=== PATIENT | female | born 1980 | race Caucasian/White ===

== ENCOUNTER → 2017-07-01 09:56 | Outpatient (CLI) | payer MEDICAID ==
[2016-10-15 07:47] VITALS: BMI 35.9
[~2017-07-01 09:56] MED LIST: ASPIRIN EC81 M1 PO; CALTRATE 600 M600 M1 PO; GLUCOPHAGE500 MG PO; HYDROCODON-ACE1 EAC7 PO; LISINOPRIL-HCTZ1 TA2 PO; MULTIPLE VITAMI1 TA1 PO; NORMODYNE / TR100 MG PO; PRAVASTATIN SOD10 MG PO; ZOFRAN8 MG PO
== END | disposition home or self-care (01) ==
LOC: D.US 09:56
DX: R22.1 Localized swelling, mass and lump, neck (principal)

== ENCOUNTER → 2017-12-18 08:32 | Outpatient (CLI) | payer MEDICAID ==
[2016-10-15 07:47] VITALS: BMI 35.9
== END | disposition home or self-care (01) ==
LOC: D.US 08:32
DX: E04.1 Nontoxic single thyroid nodule (principal)

== ENCOUNTER → 2018-07-15 08:32 | Outpatient (CLI) | payer MEDICAID ==
[2016-10-15 07:47] VITALS: BMI 35.9
== END | disposition home or self-care (01) ==
LOC: D.US 08:32
DX: E04.1 Nontoxic single thyroid nodule (principal)

== ENCOUNTER → 2019-07-11 12:24 | Outpatient (CLI) | payer MEDICAID ==
[2016-10-15 07:47] VITALS: BMI 35.9
[~2019-07-11 12:24] MED LIST changes: +SYNTHROID50 MCG PO; +ZOFRAN4 MG PO
== END | disposition home or self-care (01) ==
LOC: D.US 12:24
PROVIDERS: ATTEND Family Medicine
DX: R22.1 Localized swelling, mass and lump, neck (principal)

== ENCOUNTER 2019-08-15 05:50 | Day surgery (SDC) | payer MEDICAID ==
[~2019-08-15] VITALS: Ht 162.6 cm; Wt 95.0 kg
[~2019-08-15 05:50] MED LIST changes: -ZOFRAN4 MG PO
[2019-08-15 06:25] LABS: HEMATOCRIT 38.3 % (36.0-48.0); HEMOGLOBIN 12.6 g/dL (12-16); MCH 26.6 pg (26.0-34.0); MCHC 32.9 g/dL (31.0-37.0); MEAN PLATELET VOLUME 9.1 fL (7.4-10.4); RBC 4.73 10x6/uL (4.00-5.40); RDW 15.3 % (11.5-14.5)
[2019-08-15 06:35] LABS: CALC OSMOLALITY 280 mosm/kg (275-300); CALCIUM 9.4 mg/dL (8.5-10.1); CARBON DIOXIDE 27.1 mmol/L (21.0-32.0); CHLORIDE - SERUM 103 mmol/L (98-107); CREATININE - SERUM 0.8 mg/dL (0.6-1.3); GLUCOSE 119 mg/dL (74-106); POTASSIUM - SERUM 4.2 mmol/L (3.5-5.1); SODIUM 139 mmol/L (136-145); UREA NITROGEN 17 mg/dL (7-18); eGFR NON AFRICAN AMERICAN 84 mL/min (90-120)
[2019-08-15 07:11] VITALS: BP 154/78; BMI 36.1
[2019-08-15 07:18] LABS: HCG URINE NEGATIVE (NEGATIVE)
[2019-08-15 11:45] VITALS: BP 157/85
--- NOTE | 2019-08-15 13:58 | HP ---
PATIENT: FARHANA BARRIOS MEDICAL RECORD: [id number] ACCOUNT: [id number] LOCATION:[id number] : 76 ADMISSION DATE: 08/15/19 PCP: GARETT DUBOIS HISTORY AND PHYSICAL EXAMINATION HISTORY OF PRESENT ILLNESS: Farhana is 37 years old. She has a right parathyroid nodule that is increased in size. She is being admitted for right thyroid lobectomy, possible total. PAST MEDICAL HISTORY: Includes diabetes, hypertension. PAST SURGICAL HISTORY: Includes cholecystectomy. CURRENT MEDICATIONS: Include pravastatin, metformin, lisinopril, aspirin has been held, calcium, vitamins, Zyrtec. ALLERGIES: CODEINE. PHYSICAL EXAMINATION: GENERAL: She is healthy-appearing. FACE: Normal, symmetric, no lesions. EYES: Sclerae and conjunctivae are normal. EARS: Canals and TMs are normal. NOSE: No masses, polyps or drainage. ORAL CAVITY AND OROPHARYNX: Tongue protrudes in the midline. Pharynx is normal. NECK: No masses, no adenopathy. CHEST: Clear. CARDIOVASCULAR: Regular rate and rhythm, no murmur. EXTREMITIES: Normal. On thyroid ultrasound, right lobe has a right 12 mm nodule. The left side had the right nodule increased to 14 mm. IMPRESSION: Right thyroid nodule increasing in size despite being on thyroid suppression. PLAN: Right thyroid lobectomy, possible total thyroidectomy. TRANSINT:[id number] Voice Confirmation ID: [id number] DOCUMENT ID: [id number] DES CASAS MD at 1358 CC: [id number] DICTATION DATE: 08/12/19 1038 TECHNICAL ACCOUNT EXECUTIVE: 08/12/19 1100 REG [facility] [address] [place] [id number]
--- NOTE | 2019-08-15 13:58 | OP ---
PATIENT NAME: NANCY BARRIOS MEDICAL RECORD: [id number] :76 LOCATION:[id number] ADMISSION DATE: SURGEON: BRAN CASAS MD DATE OF OPERATION: 08/15/2019 PREOPERATIVE DIAGNOSIS: Right thyroid nodule. POSTOPERATIVE DIAGNOSIS: Right thyroid nodule. PROCEDURE: Right thyroid lobectomy. SURGEON: Bran Casas MD ANESTHESIA: General orotracheal. BLOOD LOSS: Less than 5 cc. SPECIMENS: Right thyroid lobe. Frozen section diagnosis benign nodule. DRAINS: A single drain through a separate stab incision inferior to the wound. COMPLICATIONS: None. DISPOSITION: Recovery stable. DESCRIPTION OF PROCEDURE: She was brought to the operating room and placed in supine position, sedated and intubated by anesthesia. She was positioned, prepped and draped in usual fashion for thyroid surgery. The area of the injection was injected with 0.5 cc of 1% lidocaine with 1:100,000 epinephrine with 1-1/2 inch 27-gauge needle. A horizontal incision was made with a 15 blade. This was taken down through subcutaneous tissue to the level of platysma with cautery. Flaps were developed superiorly and inferiorly exposing the thyroid cartilage. The strap muscles were divided in the midline in layers until the thyroid was identified. The left side was retracted first, exposed the thyroid and there was really no palpable thyroid nodule that appeared normal. Blunt dissection on the right side exposed the right thyroid lobe as well. Right angle retractors were used, nodule could be palpated consistent with a 1.5 cm nodule that was identified on ultrasound. This dissection began inferiorly, taken down, some small vessels with bipolar cautery and silk ties. The node was lifted up and the recurrent laryngeal nerve was identified. The inferior parathyroid was identified and dissected off of the gland. The gland was rotated medially preserving the recurrent laryngeal nerve and the superior parathyroid. The superior pedicle was taken down as well with multiple clamps and 2-0 silk ties to take down the vascular pedicle. With that, the entire gland could be rotated medially and dissected off above the recurrent laryngeal nerve and the Sanchez's ligament was divided. Once that was completed, it was divided to the midline with cautery and the specimen was sent for path, which returned frozen benign follicular adenoma. There was really no significant bleeding. The wound was irrigated and inspected. A drain was placed inferiorly. A piece of Surgicel was placed over the Sanchez's ligament area for hemostasis, prevention. The strap muscles were reapproximated with a single 3-0 Vicryl and then the platysma layer was closed with interrupted 3-0 Vicryl. Skin was closed with running 6-0 Prolene. She was awakened, extubated, and transported to recovery in good condition. No complications. OPERATIVE REPORT [id number] NANCY BARRIOS TRANSINT:[id number] Voice Confirmation ID: [id number] DOCUMENT ID: [id number] BRAN CASAS MD at 1358 CC: [id number] DICTATION DATE: 08/15/19 1142 FIRESTOPPER TECHNICIAN: 08/15/19 1338 REG [facility] [address] [place] [address]
[2019-08-15 15:49] VITALS: BP 157/85; Ht 162.6 cm; Wt 95.0 kg
[2019-08-15 15:55] VITALS: BP 133/77
--- NOTE | 2019-08-15 16:43 | NUR ---
PT IS ASLEEP, EASILY AWAKENED, NO NEEDS VOICED, BED IN LOW POSITION, DRESSING IS CLEAN AND DRY CONTINUE WITH PLAN OF CARE
--- NOTE | 2019-08-15 18:23 | NUR ---
PT SLEEPING, ATE DINER, NO NEEDS VOICED, NO S/S OF DISTRESS CONTINUE WITH PLAN OF CARE
[2019-08-15 22:28] VITALS: BP 161/95
[2019-08-16] VITALS: BP 147/70
[2019-08-16 06:13] VITALS: BP 143/91
--- NOTE | 2019-08-16 07:03 | NUR ---
PT IS RSTING IN BED WITH EYES OPEN AND RESPIRATIONS ARE EVEN AND UNLABORED. PT IS AAO X 4. GERMAN DRAIN NOTED TO NECK. BULB IS COMPRESSED. DRAINAGE IS BLOODY AND SCANT. DRESSING TO NECK IS CDI. PT DENIES PRESENCE OF SOLORIO/N/V AT THIS TIME. BED IS IN THE LOWEST POSITION. CALL LIGHT AND BEDSIDE TABLE ARE WITHIN REACH. SIDE RAILS X 2. PT DENIES FURTHER NEEDS. WILL CONT TO MONITOR.
[2019-08-16 08:55] VITALS: BP 161/93
[2019-08-16] MEDS ORDERED: HYDROCODON-ACE1 EAC7 PO (09:09)
[2019-08-16] MEDS ORDERED: ZOFRAN4 MG PO (09:10)
--- NOTE | 2019-08-16 09:46 | NUR ---
ALL DISCHARGE INSTRUCTIONS COVERED WITH PT AND PT SPOUSE WHO IS AT BEDSIDE. (2) PRINTED RX GIVEN TO PT AND INSTRUCTED PT TO GO TO PHARMACY ON WAY HOME TO GET RX FILLED. PT VERBALIZES UNDERSTANDING. ALL DISCHARGE PAPERS SIGNED BY PATIENT. PT DENIES FURTHER QUESTIONS/CONCERNS/NEEDS AT THIS TIME. PIV TO RIGHT AC REMOVED WITH CATHETER TIP INTACT. DRESSING APPLIED. PT IS DRESSED AND READY FOR TRANSPORT OUT OF ROOM. WILL NOTIFY VOLUNTEER STAFF.
--- NOTE | 2019-08-16 10:00 | NUR ---
PT TRANSPORTED FROM ROOM VIA WHEELCHAIR FOR TRANSPORT HOME. PT DENIES FURTHER QUESTIONS/CONCERNS/NEEDS AT THIS TIME.
== END 2019-08-16 11:00 | disposition home or self-care (01) ==
LOC: D.OPS 05:50 → EDSTATUS 08:15 → D.OPS 08:15 → D.MS 11:25 → D.OPS 08-16 11:00
PROVIDERS: Anesthesiology; ATTEND Otolaryngology
DX: E04.1 Nontoxic single thyroid nodule (principal); E11.9 Type 2 diabetes mellitus without complications; I10 Essential (primary) hypertension